=== PATIENT | male | born 1990 | race Two or more races ===

== ENCOUNTER 2019-03-17 19:09 | Emergency (ER) | payer MEDICAID ==
[~2019-03-17] VITALS: Ht 177.8 cm; Wt 113.4 kg
--- NOTE | 2019-03-17 19:50 | NUR ---
PT AAOX4. AMBULATORY. PT BIBSELF C/O "SORE THROAT" X 1 DAY, PT STATES HE COUGHED BLOOD. PLACED ON MONIOTOR AND PULSE OX. NO ACUTE DISTRESS NOTED.
[2019-03-17] MEDS ORDERED: IBUPROFEN 400 MG TABLET PO ONE (20:00)
[2019-03-17] MEDS ORDERED: IBUPROFEN 400 MG TABLET ONE (20:01)
--- NOTE | 2019-03-17 20:01 | NUR ---
RAPID INF AND STREP SENT TO LAB
--- NOTE | 2019-03-17 21:04 | NUR ---
Patient discharged to home in stable condition. Written and verbal after care instructions given. Patient verbalizes understanding of instruction and RX. PT ambulatory with a steady gait.
[2019-03-17 21:07] VITALS: BP 146/78
== END 2019-03-17 21:07 | disposition home or self-care (01) ==
LOC: ER 19:11
DX: J10.1 Influenza due to other identified influenza virus with other respiratory manifestations (principal); R51 Headache; I10 Essential (primary) hypertension; F10.10 Alcohol abuse, uncomplicated; Y90.9 Presence of alcohol in blood, level not specified
CPT/HCPCS: 71045-TC; 86403-TC; 87070-TC